=== PATIENT | female | born 1940 | race Caucasian/White ===

== ENCOUNTER → 2016-09-08 | Outpatient (CLI) | payer OTHER | LOC: FIMAGING 10:19 | DX: Z12.31 Encounter for screening mammogram for malignant neoplasm of breast (principal) | CPT/HCPCS: G0202 ==

== ENCOUNTER 2017-06-27 05:33 | Observation (INO) | payer OTHER ==
[2017-06-27] MEDS ORDERED: CLINDAMYCIN 900 MG/DEXTROSE 50 ML IV ONE (05:59)
[2017-06-27] MEDS ORDERED: LR 1,000 ML IV ONE (06:00)
[2017-06-27] MEDS ORDERED: LIDOCAINE 1% 2 ML INJ ID PRN (06:00)
[2017-06-27] MEDS ORDERED: BUPIVACAINE 0.5% 30 ML SDV ONE (06:52)
[2017-06-27 06:55] LABS: PLATELET COUNT 344 10^3/uL (150-400)
--- NOTE | 2017-06-27 07:08 | PDHPUP ---
History & Physical Update H&P update statement: This history and physical update is based on an assessment of the patient which was completed after admission or registration (within 24 hours), but prior to the surgery/procedure.
--- NOTE | 2017-06-27 07:14 | PDANEPAE ---
ANE History of Present Illness ovarian cancer ANE Past Medical History - Cardiovascular History Hx Hypertension: No Hx Arrhythmias: No Hx Chest Pain: No Hx Coronary Artery / Peripheral Vascular Disease: No Hx CHF / Valvular Disease: No Hx Palpitations: No - Pulmonary History Hx COPD: No Hx Asthma/Reactive Airway Disease: No Hx Recent Upper Respiratory Infection: No Hx Oxygen in Use at Home: No Hx Sleep Apnea: No Sleep Apnea Screening Result - Last Documented: Negative - Neurologic History Hx Cerebrovascular Accident: No Hx Seizures: No Hx Dementia: No Neurologic History Comment: migraines- uses propanolol for prevention of migraines - Endocrine History Hx Diabetes: No - Renal History Hx Renal Disorders: Yes Renal History Comment: hx of kidney stones - Liver History Hx Hepatic Disorders: No - Neurological & Psychiatric Hx Hx Neurological and Psychiatric Disorders: No Neurological / Psychiatric History Comment: mild anxiety no treatment - Cancer History Hx Cancer: Yes Cancer History Comment: ovarian cancer with lymph node involvement 2010- chemo and surgery. current spleen involvement - Congenital Disorder History Hx Congenital Disorders: No - GI History Hx Gastrointestinal Disorders: Yes Gastrointestinal History Comment: constipation - Other Health History Other Health History: wears reading glasses - Chronic Pain History Chronic Pain: No - Surgical History Prior Surgeries: 10/25/14 lap lymph node resection with reyes nephrolithotripsy with theresa 02/07/2013. ileostomy reversal and port removal with dr chambers 05/19/2012. port placement with reyes 01/19/2012. HERNAN/ BSO for ovarian cancer 08/2011 in [place] SIMONE Review of Systems Review of Systems: - Exercise capacity METS (RN): 4 METS ANE Patient History - Allergies Allergies/Adverse Reactions: lorazepam Allergy (Verified 06/24/17 11:58) gets a migraine Penicillins Allergy (Verified 06/24/17 11:58) thinks rash as child Sulfa (Sulfonamide Antibiotics) Allergy (Verified 06/24/17 11:58) pt is unsure of reaction or why it is on here - Home Medications Home Medications: Propranolol Sr [Inderal LA 60mg (RX)] HS 02/11/12 [Last Taken 06/26/17 19:00] Herbals/Supplements -Info Only 06/24/17 [Last Taken 06/24/17] Tums 500MG (*) 06/24/17 [Last Taken 06/25/17] - NPO status NPO Since - Liquids (Date): 06/27/17 NPO Since - Liquids (Time): 04:00 NPO Since - Solids (Date): 06/26/17 NPO Since - Solids (Time): 09:00 - Smoking Hx Smoking Status: Former smoker - Family Anes Hx Family Hx Anesthesia Complications: none ANE Labs/Vital Signs - Labs Result Diagrams: 06/27/17 06:35 - Vital Signs Blood Pressure: 157/82 Heart Rate: 48 Respiratory Rate: 16 O2 Sat (%): 99 Height: 163.83 cm Weight: 52.163 kg ANE Physical Exam - Airway Mallampati Score: Class 3 Mouth exam: normal dental/mouth exam - Pulmonary Pulmonary: no respiratory distress - Cardiovascular Cardiovascular: regular rate and rhythym - ASA Status ASA Status: III ANE Anesthesia Plan Anesthesia Plan: general endotracheal anesthesia
[2017-06-27] MEDS ORDERED: fentaNYL 100 MCG/2 ML INJ ONE ×2 (07:22)
[2017-06-27] MEDS ORDERED: DEXAMETHASONE 4 MG/ML VIAL ONE (07:22)
[2017-06-27] MEDS ORDERED: HYDROmorphONE/DILAUDID 2 MG/ML INJ ONE (07:22)
[2017-06-27] MEDS ORDERED: LIDOCAINE 2% 5 ML SDV ONE (07:22)
[2017-06-27] MEDS ORDERED: PROPOFOL 200 MG/20 ML VIAL ONE (07:22)
[2017-06-27] MEDS ORDERED: ROCURONIUM 50 MG/5 ML VIAL ONE (07:22)
[2017-06-27] MEDS ORDERED: ONDANSETRON 4 MG/2 ML VIAL ONE (07:22)
[2017-06-27] MEDS ORDERED: HYDROmorphONE/DILAUDID 1 MG/ML INJ IVP PRN ×2 (08:52→09:03)
[2017-06-27] MEDS ORDERED: ONDANSETRON 4 MG/2 ML VIAL IVP PRN ×2 (08:52→09:03)
[2017-06-27] MEDS ORDERED: PROMETHAZINE HCL 25 MG/ML INJ IVP PRN (08:52)
[2017-06-27] MEDS ORDERED: fentaNYL 100 MCG/2 ML INJ IVP PRN (08:52)
[2017-06-27] MEDS ORDERED: NALOXONE HCL 0.4 MG/ML INJ IVP PRN (08:52)
[2017-06-27] MEDS ORDERED: OXYCODONE/APAP 5/325 TAB PO PRN ×2 (08:52→09:03)
--- NOTE | 2017-06-27 08:59 | POSTOPPROG ---
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
--- NOTE | 2017-06-27 09:02 | POSTANESTH ---
Post Anesthetic Evaluation Cardiovascular Status: Normal, Stable Respiratory Status: Normal, Stable Level of Consciousness/Mental Status: Can Participate in Eval Pain Control: Adequate, Prn Tx Ordered Nausea/Vomiting Control: Adequate, Prn Tx Ordered Complications Possibly Related to Anesthesia: None Noted
[2017-06-27] MEDS ORDERED: ACETAMINOPHEN 325 MG TAB PO PRN (09:03)
[2017-06-27] MEDS ORDERED: NS W/ 20 KCl/L 1,000 ML IV SCH (09:15)
[2017-06-27 10:06] VITALS: RESP 16
[2017-06-27] MEDS ORDERED: CALCIUM CARBONATE 500 MG CHEWABLE TAB PO PRN (13:32)
[2017-06-27 15:57] VITALS: BP 147/75; PULSE 51; TEMP 97.5; O2SAT 97
[2017-06-27] MEDS ORDERED: DOCUSATE SODIUM 100 MG CAP PO SCH (21:00)
[2017-06-27] MEDS ORDERED: PROPRANOLOL SR 60 MG CAP PO SCH (21:00)
[2017-06-29] MEDS ORDERED: ENOXAPARIN 40 MG/0.4 ML SYR SC SCH (09:00)
--- NOTE | 2017-06-29 12:12 | GOP ---
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 PROCEDURE PERFORMED: 1. Laparoscopic splenectomy. 2. Laparoscopic resection of malignant tumor. FINDINGS: The patient was found to have a 3 cm malignant tumor adjacent to the end of the pancreas, which appeared to be consistent with ovarian cancer. 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 ESTIMATED BLOOD LOSS: Less than 25 mL. DESCRIPTION OF PROCEDURE: Patient was taken to the operating room where she received satisfactory ge neral endotracheal anesthesia. She was placed in supine position and tilted up with the wedge to deena roximately 30 degrees. She was prepped and draped in the usual sterile fashion. A short incision wa s made in the epigastrium through a previous old incision. Dissection was extended down to the fasci a, which was carefully incised and the abdomen was entered. It was amazingly clear of adhesions. A 10 mm trocar was introduced. Laparoscope introduced. Good visualization was obtained. Three other trocars were placed in the subcostal area under direct vision. The splenic flexure was mobilized and reduced. The retroperitoneum was entered. The splenic mass was readily visible; this was dissected free with a Harmonic Scalpel. The fascia layer was divided with a Harmonic Scalpel and was freed up from attachments to the diaphragm and was eventually placed in a specimen bag. Prior to that, disse ction extended down to the pancreas, and at the distal end of the pancreas, and metastatic mass was e ncountered. This was dissected free intact away from the pancreas, completely mobilized, and then pl aced in a retrieval bag along with the splenic mass. Hemostasis was assured. The lesions were extra cted through midline port site and sent to Pathology. Wound was irrigated. Hemostasis was assured. Trocars were removed under direct vision. Trocar sites were closed with 0 Vicryl for the fascia, 4- 0 Monocryl subcuticular stitch for the skin. All layers were infiltrated with Marcaine. A 15 round silicone CLAUDETTE drain was brought out through one of the trocar sites and placed over the pancreatic bed that was secured to the skin with a silk suture. She tolerated the procedure well. There were no co mplications. /[id number]/MODL
== END 2017-06-27 17:55 | disposition home or self-care (01) ==
LOC: F3E 05:33 → F1N 09:44
PROVIDERS: ADMIT Surgery; ATTEND Surgery
PROC: 07TP4ZZ Resection of Spleen, Percutaneous Endoscopic Approach (ICD-10-PCS; principal; 2017-06-27 07:15)
PROC: 0DBW4ZX Excision of Peritoneum, Percutaneous Endoscopic Approach, Diagnostic (ICD-10-PCS; principal; 2017-06-27 07:15)
DX: C78.6 Secondary malignant neoplasm of retroperitoneum and peritoneum (principal); Q89.09 Congenital malformations of spleen; Z85.43 Personal history of malignant neoplasm of ovary
CPT/HCPCS: 38120; 49321; G0378; J1100; J2405; J2704; J3010; J1170